=== PATIENT | male | born 1950 | race Hispanic/Latino ===

== ENCOUNTER 2022-02-12 16:31 | Observation (INO) | payer MEDICARE, OTHER ==
[~2022-02-12] VITALS: Ht 175.3 cm; Wt 83.9 kg
[2022-02-12 17:16] LABS: BASOPHILS % 0.7 % (0.0-1.0); EOSINOPHILS # (AUTO) 0.2 (0.0-0.4); EOSINOPHILS % 4.1 % (0.0-6.0); HEMATOCRIT 33.3 % (38.2-49.6); HEMOGLOBIN 11.7 g/dL (14.0-18.0); LYMPHOCYTES # (AUTO) 1.2 (1.0-3.2); LYMPHOCYTES % 21.5 % (18.0-39.1); MEAN CORPUSCULAR HEMOGLOBIN 29.7 pg (28-32); MEAN CORPUSCULAR HGB CONC 35.1 g/dL (31-35); MEAN CORPUSCULAR VOLUME 84.5 fL (81-99); MONOCYTES # (AUTO) 0.6 (0.2-0.8); MONOCYTES % 11.6 % (4.4-11.3); NEUTROPHILS # (AUTO) 3.3 (2.1-6.9); NEUTROPHILS % 61.9 % (38.7-80.0); PLATELET COUNT 194 x10e3/uL (140-360); RED BLOOD COUNT 3.94 x10e6/uL (4.3-5.7); RED CELL DISTRIBUTION WIDTH 12.8 % (11.7-14.4)
[2022-02-12 17:17] LABS: CLARITY,URINE CLEAR (CLEAR); COLOR,URINE YELLOW (YELLOW); LEUKOCYTE ESTERASE ,URINE NEGATIVE (NEGATIVE); NITRITE,URINE NEGATIVE (NEGATIVE); PROTEIN,URINE DIPSTICK NEGATIVE (NEGATIVE)
[2022-02-12 17:18] LABS: KETONES,URINE NEGATIVE (NEGATIVE); URINE UROBILINOGEN 0.2 mg/dL (0.2 - 1)
[2022-02-12 17:36] LABS: ALBUMIN 3.8 g/dL (3.5-5.0); ALBUMIN/GLOBULIN RATIO 1.2 (0.8-2.0); ANION GAP 12.1 mmol/L (8-16); CALCIUM 8.4 mg/dL (8.4-10.2); CREATININE, SERUM 0.77 mg/dL (0.72-1.25); POTASSIUM 3.1 mmol/L (3.5-5.1)
[2022-02-12] MEDS: SODIUM CHLORIDE 0.9% 1000ML 1,000 ML IV SCH (18:06)
[2022-02-12 18:32] LABS: CREATINE KINASE MB 3.8 ng/mL (0-5.0)
[2022-02-12 19:30] VITALS: BP 142/71
[2022-02-12] MEDS ORDERED: LIDOCAINE JELLY 2% 10ML URO-JET ONE (19:30)
[2022-02-12] MEDS ORDERED: ONDANSETRON HCL INJ 2MG/ML 2ML 2 MG/ML VIAL IV STA (19:48)
[2022-02-12] MEDS ORDERED: Morphine 4mg INJECTION 4 MG/ML INJ IV ONE (20:00)
[2022-02-12] MEDS ORDERED: IOPAMIDOL 370 MG/ML 100 ML INFUS..BTL INJ ONE (20:12)
[2022-02-12] MEDS ORDERED: MOVANTIK25 MG (20:18)
[2022-02-12] MEDS ORDERED: FLOMAX0.4 MG PO (20:18)
[2022-02-12] MEDS ORDERED: LINZESS145 MCG (20:18)
[2022-02-12] MEDS ORDERED: LISINOPRIL10 MG PO (20:18)
[2022-02-12] MEDS ORDERED: FINASTERIDE5 MG PO (20:18)
[2022-02-12] MEDS ORDERED: PENICILLIN V P500 MG PO (20:18)
[2022-02-12 22:35] VITALS: BP 134/87
[2022-02-12 23:26] VITALS: BP 134/87
[2022-02-13] MEDS: SODIUM CHLORIDE 0.9% 1000ML 1,000 ML IV SCH ×2 (03:16→11:33)
[2022-02-13 04:00] VITALS: BP 107/70
[2022-02-13 06:37] LABS: BASOPHILS % 0.6 % (0.0-1.0); EOSINOPHILS # (AUTO) 0.3 (0.0-0.4); EOSINOPHILS % 6.3 % (0.0-6.0); HEMATOCRIT 32.1 % (38.2-49.6); HEMOGLOBIN 11.7 g/dL (14.0-18.0); LYMPHOCYTES % 21.1 % (18.0-39.1); MEAN CORPUSCULAR HGB CONC 36.4 g/dL (31-35); MEAN CORPUSCULAR VOLUME 82.3 fL (81-99); MONOCYTES # (AUTO) 0.7 (0.2-0.8); MONOCYTES % 14.6 % (4.4-11.3); NEUTROPHILS # (AUTO) 2.7 (2.1-6.9); NEUTROPHILS % 57.2 % (38.7-80.0); PLATELET COUNT 207 x10e3/uL (140-360); RED CELL DISTRIBUTION WIDTH 13.1 % (11.7-14.4)
[2022-02-13 06:57] LABS: ANION GAP 9.7 mmol/L (8-16); CALCIUM 8.6 mg/dL (8.4-10.2); CREATININE, SERUM 0.76 mg/dL (0.72-1.25); POTASSIUM 3.7 mmol/L (3.5-5.1)
[2022-02-13 07:53] LABS: CREATINE KINASE MB 2.6 ng/mL (0-5.0)
[2022-02-13 08:10] VITALS: BP 122/80
[2022-02-13 09:10] VITALS: BP 122/80
[2022-02-13 12:02] VITALS: BP 132/87
== END 2022-02-13 12:54 | disposition home or self-care (01) ==
LOC: ER 17:06 → ERHOLD 17:56 → INTOOBSV 17:56 → MED/SURG2 22:28
PROVIDERS: ADMIT Internal Medicine; ATTEND Internal Medicine
DX: N40.1 Benign prostatic hyperplasia with lower urinary tract symptoms (principal); N13.8 Other obstructive and reflux uropathy; R33.8 Other retention of urine; E87.1 Hypo-osmolality and hyponatremia; I10 Essential (primary) hypertension; D64.9 Anemia, unspecified; E11.9 Type 2 diabetes mellitus without complications; Z88.8 Allergy status to other drugs, medicaments and biological substances; Z20.822 Contact with and (suspected) exposure to COVID-19
CPT/HCPCS: 36415 ×2; 51702; 71045; 74177; 80048; 80053; 81001; 82550 ×2; 82553 ×2; 83690; 84484 ×2; 85025 ×2; 93005; 94799 ×2; 96360; 96361; 99284; G0378 ×2; J2270; J2405; J7030 ×2; Q9967; U0002; 51700

== ENCOUNTER 2022-02-14 11:57 | Emergency (ER) | payer MEDICARE, OTHER ==
[~2022-02-14] VITALS: Ht 175.3 cm; Wt 83.9 kg
[~2022-02-14 11:57] MED LIST: FINASTERIDE5 MG PO; FLOMAX0.4 MG PO; LINZESS145 MCG; LISINOPRIL10 MG PO; MOVANTIK25 MG; PENICILLIN V P500 MG PO
== END 2022-02-14 13:14 | disposition home or self-care (01) ==
LOC: ER 12:29
DX: R31.9 Hematuria, unspecified (principal); I10 Essential (primary) hypertension; E11.9 Type 2 diabetes mellitus without complications; Z96.653 Presence of artificial knee joint, bilateral
CPT/HCPCS: 99282